=== PATIENT | female | born 1985 | race Hispanic/Latino ===

== ENCOUNTER 2019-04-23 14:49 | Emergency (ER) | payer OTHER ==
[2019-04-23 15:48] LABS: BASOPHILS % (AUTO) 0.4 % (0.0-5.0); EOSINOPHILS % (AUTO) 2.1 % (0.0-8.0); HEMATOCRIT 32.4 % (36-48); LYMPHOCYTES % (AUTO) 21.7 % (21.0-51.0); MEAN CORPUSCULAR HEMOGLOBIN 20.4 pg (27.0-33.0); MEAN CORPUSCULAR HGB CONC 28.1 g/dL (32.0-36.0); MEAN CORPUSCULAR VOLUME 72.8 fL (79-99); MONOCYTES % (AUTO) 6.8 % (3.0-13.0); NEUTROPHILS % (AUTO) 68.7 % (40.0-77.0); PLATELET COUNT (AUTO) 264 K/uL (130-400); RED BLOOD CELL COUNT(AUTO) 4.45 MIL/uL (4.00-5.50); RED CELL DISTRIBUTION WIDTH 17.9 % (11.0-15.5); WHITE BLOOD COUNT (AUTO) 6.7 K/uL (4.8-10.8)
[2019-04-23 16:01] LABS: CREATININE 0.7 mg/dL (0.5-1.5); POTASSIUM 3.7 mmol/L (3.5-5.1)
[2019-04-23 16:04] LABS: PARTIAL THROMBOPLASTIN TIME 24.7 SEC (26.3-35.5); PROTHROMBIN TIME 10.5 SEC (9.6-11.6)
[2019-04-23 16:06] LABS: ALBUMIN 3.1 g/dL (3.5-5.0); APPEARANCE,URINE SL CLOUDY (CLEAR); BILIRUBIN,TOTAL 0.2 mg/dL (0.2-1.0); BILIRUBIN,URINE NEGATIVE (NEGATIVE); COLOR,URINE YELLOW (YELLOW); GLUCOSE, URINE (UA) NEGATIVE (NEGATIVE); KETONES,URINE NEGATIVE (NEGATIVE); LEUKOCYTE ESTERASE ,URINE TRACE (NEGATIVE); NITRATE,URINE NEGATIVE (NEGATIVE); OCCULT BLOOD,URINE SMALL (NEGATIVE); PROTEIN,URINE NEGATIVE (NEGATIVE); TOTAL PROTEIN, SERUM 6.2 g/dL (6.0-8.3); UROBILINOGEN,URINE 0.2 mg/dL (0.2-1.0)
[2019-04-23 16:15] LABS: HCG,QUAL RESULT NEGATIVE (NEGATIVE)
[2019-04-23 16:45] LABS: BACTERIA,URINE Few /HPF (None Seen); MUCUS,URINE Few LPF (None Seen); RBC,URINE None Seen /HPF (0-1)
[2019-04-23] MEDS ORDERED: TRAMADOL HCL 50 MG TABLET ONE (16:49)
[2019-04-23] MEDS ORDERED: KETOROLAC TROMETHAMINE 30MG/ML ONE (16:49)
== END 2019-04-23 17:29 | disposition home or self-care (01) ==
LOC: EDH 14:49
DX: M25.512 Pain in left shoulder (principal); R07.89 Other chest pain; M54.2 Cervicalgia; Z86.73 Personal history of transient ischemic attack (TIA), and cerebral infarction without residual deficits
CPT/HCPCS: 36415; 71045; 73030; 80053; 81001; 81025; 82550; 84484; 85025; 85610; 85730; 93005; 96374; 99285; J1885

== ENCOUNTER 2019-05-15 18:16 | Emergency (ER) | payer OTHER ==
[2019-05-15 18:42] LABS: APPEARANCE,URINE Cloudy (CLEAR); BILIRUBIN,URINE Negative (NEGATIVE); COLOR,URINE Yellow (YELLOW); GLUCOSE, URINE (UA) Negative (NEGATIVE); KETONES,URINE Trace mg/dL (NEGATIVE); LEUKOCYTE ESTERASE ,URINE Moderate (NEGATIVE); NITRATE,URINE Negative (NEGATIVE); OCCULT BLOOD,URINE Negative (NEGATIVE); PH,URINE 5.5 (5.0-8.0); PROTEIN,URINE Negative (NEGATIVE)
[2019-05-15 18:45] LABS: HCG,QUAL RESULT NEGATIVE (NEGATIVE)
[2019-05-15] MEDS ORDERED: IBUPROFEN 600 MG TABLET ONE (19:24)
[2019-05-15] MEDS ORDERED: LIDOCAINE HCL-MPF 1% 2ML VIAL ONE (19:24)
[2019-05-15] MEDS ORDERED: CEFTRIAXONE SODIUM 1 GM ONE (19:24)
[2019-05-15] MEDS ORDERED: PHENAZOPYRIDINE HCL 200 MG TABLET ONE (19:25)
[2019-05-15 19:35] LABS: BACTERIA,URINE Few /HPF (None Seen); CALCIUM OXALATE CRYSTALS,UR Few /LPF (None Seen); MUCUS,URINE Few LPF (None Seen); SQUAMOUS EPITHELIAL CELL,UR Moderate /HPF (0-2)
== END 2019-05-15 19:49 | disposition home or self-care (01) ==
LOC: EDH 18:16
DX: N39.0 Urinary tract infection, site not specified (principal); Z86.73 Personal history of transient ischemic attack (TIA), and cerebral infarction without residual deficits; Z98.51 Tubal ligation status
CPT/HCPCS: 81001; 81025; 96372; 99284; J0696; J3490